=== PATIENT | female | born 1990 | race Caucasian/White ===

== ENCOUNTER 2023-12-24 23:09 | Inpatient (IN) ==
[2023-12-25] MEDS ORDERED: Lidocaine 1% VIAL 10 MG/ML 30 ML VIAL INJ PRN (00:39)
[2023-12-25] MEDS ORDERED: Ondansetron 4 mg VIAL 2 MG/ML 2 ml VIAL IV PRN (00:42)
[2023-12-25 01:45] LABS: ABS Basophils 0.1 10^3/uL (0.0-0.1); ABS Eosinophils 0.4 10^3/uL (0.0-0.5); ABS Lymphocytes 2.3 10^3/uL (1.0-4.8); ABS Monocytes 0.8 10^3/uL (0.0-0.9); ABS Neutrophils 9.6 10^3/uL (1.5-7.6); ABS Nucleated RBC 0.05 10^3/ul; Eosinophil % 2.8 %; Hematocrit 30.2 % (35-45); Hemoglobin 10.2 g/dL (11.5-14.3); Lymphocyte % 17.3 %; Mean Corpuscular Hemoglobin 28.4 pg (27-33); Mean Corpuscular Hgb Conc 33.8 g/dL (31-36); Mean Platelet Volume 8.7 fL (7.5-11.2); Nucleated Red Blood Cells % 0.4 %/100WBC (0.0-0.8); Platelet Count 306 10^3/uL (150-450); Red Cell Distribution Width 14.9 % (12-17); White Blood Count 13.2 10^3/uL (3.8-11.8)
[2023-12-25] MEDS ORDERED: Famotidine IV 10 MG/ML 2 ml VIAL (20 mg) IV SLOW PU PRN (01:47)
[2023-12-25] MEDS: Calcium Carb (TUMS) 500 mg CHEW TAB PO PRN (02:07)
[2023-12-25] MEDS: Prochlorperazine 5 mg/ml 2 ml VIAL (10 mg) IV PRN (02:09)
[2023-12-25 02:20] LABS: Urine Benzodiazepine Screen None Detected (None Detect); Urine Cannabinoids Screen None Detected (None Detect); Urine Opiates Screen None Detected (None Detect)
[2023-12-25] MEDS: miSOPROStol 100 mcg TAB PO ONE ×2 (06:22→14:11)
[2023-12-25] MEDS ORDERED: Oxytocin in LR 20,000 MILLI.UNIT/1,000 ML BAG IV SCH (08:15)
[2023-12-25] MEDS: fentaNYL 100 mcg/2 ml 50 MCG/ML VIAL IV SLOW PU PRN (13:55)
[2023-12-25] MEDS: miSOPROStol 100 mcg TAB ONE (14:12)
[2023-12-25] MEDS: Buffered Lidocaine 1% SYRIN 1 ml INTRADERM ONE (14:21)
[2023-12-25] MEDS: Lactated Ringers 1000 ml BAG 1,000 ML IV ONE ×2 (14:38→23:58)
[2023-12-25] MEDS: OBEPIDURAL (200 ML) 200 ML EPIDURAL ONE (15:38)
[2023-12-25] MEDS: Lactated Ringers 1000 ml BAG 1,000 ML IV SCH (15:38)
[2023-12-25] MEDS ORDERED: Phenylephrine 40 mcg/mL 10mL (400mcg) SYRINGE IV PUSH PRN ×2 (15:45)
[2023-12-25] MEDS ORDERED: Sodium Citrate/Citric Acid LIQ 15 ML UDC PO PRN (15:45)
[2023-12-25] MEDS: Lidocaine 1.5% EPI 1:200,000 30 ML SDV ONE (16:00)
[2023-12-25] MEDS ORDERED: Lactated Ringers 1000 ml BAG 1,000 ML IV SCH (16:00)
[2023-12-25 16:49] LABS: Urine Appearance Clear; Urine Bilirubin Negative (Negative); Urine Blood Negative (Negative); Urine Color Light-Yellow; Urine Glucose Negative (Negative); Urine Ketones Negative (Negative); Urine Nitrite Negative (Negative); Urine Protein Negative (Negative); Urine Specific Gravity 1.018 (1.002-1.030); Urine Urobilinogen Negative (Negative)
[2023-12-25] MEDS: Oxytocin in LR 20,000 MILLI.UNIT/1,000 ML BAG IV SCH ×2 (17:25→21:30)
[2023-12-25] MEDS ORDERED: Lidocaine 2% w/ EPI 1:200,000 MPF 20 ML SDV VIAL ONE (18:26)
[2023-12-25] MEDS ORDERED: Measles, Mumps,Rubella VACC 0.5 ML/VIAL SUBCUT ONE (21:32)
[2023-12-25] MEDS ORDERED: Glycerin ADULT 2.4 gm SUPP PR PRN (21:32)
[2023-12-25] MEDS: Dibucaine 1% OINT 28.35 GM TUBE PR PRN (22:09)
[2023-12-25] MEDS: Witch Hazel PAD JAR TOPICAL PRN (22:09)
[2023-12-25] MEDS: OBEPIDURAL (200 ML) 200 ML EPIDURAL SCH (23:58)
[2023-12-26 07:37] LABS: ABS Eosinophils 0.1 10^3/uL (0.0-0.5); ABS Lymphocytes 2.2 10^3/uL (1.0-4.8); ABS Monocytes 1.3 10^3/uL (0.0-0.9); ABS Neutrophils 10.9 10^3/uL (1.5-7.6); ABS Nucleated RBC 0.01 10^3/ul; Eosinophil % 0.9 %; Mean Corpuscular Hemoglobin 27.8 pg (27-33); Mean Corpuscular Hgb Conc 33.3 g/dL (31-36); Mean Corpuscular Volume 83.4 fL (80-97); Nucleated Red Blood Cells % 0.1 %/100WBC (0.0-0.8); Platelet Count 305 10^3/uL (150-450); Red Cell Distribution Width 14.5 % (12-17); White Blood Count 14.6 10^3/uL (3.8-11.8)
[2023-12-27 07:53] VITALS: BP 125/81
== END 2023-12-27 11:18 | disposition home or self-care (01) | DRG 807 ==
LOC: MCHOBOUT 23:09 → MCHOB 12-25 00:02
PROVIDERS: ADMIT Advanced Practice Midwife